=== PATIENT | female | born 1945 | race Caucasian/White ===

== ENCOUNTER 2024-01-27 07:09 | Day surgery (SDC) | payer MEDICAID ==
[~2024-01-27] VITALS: Ht 152.4 cm; Wt 84.1 kg
[~2024-01-27 07:09] MED LIST: ACET-66 PO; ALEN70TA80 PO; AMLO2.5T29 PO; ATOR10TA69 PO; CHOL100062 PO; CHONDR SULF A SOD/HYALURONATE 1.05 ML KIT IO ONE; FentaNYL CITRATE PF 100 MCG/2 ML VIAL ONE; KETOROLAC TROMETHAMINE 0.5% 5 ML OPHTHALMIC SOLUTION ONE; MIDAZOLAM HCL 2 MG/2 ML VIAL ONE; MOXIFLOXACIN HCL 0.5% 3 ML OPHTHALMIC SOLUTION ONE; PHENYLEPHRINE HCL 2.5% 2 ML OPHTHALMIC SOLUTION ONE; RINGERS SOLUTION,LACTATED 500 ML IV ONE; TELM40TA8 PO; TROPICAMIDE 1% 2 ML OPHTHALMIC SOLUTION ONE
[2024-01-27] MEDS: KETOROLAC TROMETHAMINE 0.5% 5 ML OPHTHALMIC SOLUTION OD SCH (08:13)
[2024-01-27] MEDS: MOXIFLOXACIN HCL 0.5% 3 ML OPHTHALMIC SOLUTION OD SCH (08:13)
[2024-01-27] MEDS: TROPICAMIDE 1% 2 ML OPHTHALMIC SOLUTION OD SCH (08:13)
[2024-01-27] MEDS: PHENYLEPHRINE HCL 2.5% 2 ML OPHTHALMIC SOLUTION OD SCH (08:14)
[2024-01-27] MEDS: RINGERS SOLUTION,LACTATED 500 ML IV ONE (08:14)
[2024-01-28] MEDS: BALANCED SALT 15 ML OPHTHALMIC IRRIG.SOLN ONE (13:29)
[2024-01-28] MEDS: EPINEPHrine 1:1,000 [1 MG/ML] VIAL ONE (13:29)
[2024-01-28] MEDS: LIDOCAINE/PF 1% 2 ML VIAL ONE (13:30)
[2024-01-28] MEDS: POVIDONE-IODINE 5% 30 ML OPHTHALMIC SOLUTION ONE (13:31)
[2024-01-28] MEDS: TETRACAINE HCL/PF 0.5% 4 ML OPHTHALMIC SOLUTION ONE (13:31)
== END 2024-01-27 10:25 | disposition home or self-care (01) ==
LOC: SURGERY 07:09
PROVIDERS: ATTEND Ophthalmology
DX: H25.12 Age-related nuclear cataract, left eye (principal); I10 Essential (primary) hypertension; M17.10 Unilateral primary osteoarthritis, unspecified knee; E78.00 Pure hypercholesterolemia, unspecified; M19.90 Unspecified osteoarthritis, unspecified site; D64.9 Anemia, unspecified; E66.01 Morbid (severe) obesity due to excess calories; Z68.36 Body mass index [BMI] 36.0-36.9, adult; Z88.0 Allergy status to penicillin; Z90.49 Acquired absence of other specified parts of digestive tract; Z98.49 Cataract extraction status, unspecified eye; Z98.890 Other specified postprocedural states
CPT/HCPCS: 93005; 66984; J7321; J0171; J3010; J3490; J2250; J7120; V2632

== ENCOUNTER → 2024-02-24 | Day surgery (SDC) | payer MEDICAID ==
[~2024-02-24] VITALS: Ht 142.2 cm; Wt 84.1 kg
[2024-02-24] MEDS: PHENYLEPHRINE HCL 2.5% 2 ML OPHTHALMIC SOLUTION OS SCH (11:06)
[2024-02-24] MEDS: RINGERS SOLUTION,LACTATED 500 ML IV ONE (11:06)
[2024-02-24] MEDS: TROPICAMIDE 1% 2 ML OPHTHALMIC SOLUTION OS SCH (11:06)
[2024-02-24] MEDS: KETOROLAC TROMETHAMINE 0.5% 5 ML OPHTHALMIC SOLUTION OS SCH (11:07)
[2024-02-24] MEDS: MOXIFLOXACIN HCL 0.5% 3 ML OPHTHALMIC SOLUTION OS SCH (11:08)
[2024-02-24] MEDS: EPINEPHrine 1:1,000 [1 MG/ML] VIAL ONE (14:16)
[2024-02-24] MEDS: BALANCED SALT 15 ML OPHTHALMIC IRRIG.SOLN ONE (14:16)
[2024-02-24] MEDS: LIDOCAINE/PF 1% 2 ML VIAL ONE (14:17)
[2024-02-26] MEDS: POVIDONE-IODINE 5% 30 ML OPHTHALMIC SOLUTION ONE (14:17)
[2024-02-26] MEDS: TETRACAINE HCL/PF 0.5% 4 ML OPHTHALMIC SOLUTION ONE (14:18)
== END | disposition home or self-care (01) ==
LOC: SURGERY 09:45
PROVIDERS: ATTEND Ophthalmology
DX: H25.12 Age-related nuclear cataract, left eye (principal); Z90.49 Acquired absence of other specified parts of digestive tract
CPT/HCPCS: J0171; J2250; J3010; J3490; J7120